=== PATIENT | male | born 1995 | race Hispanic/Latino ===

== ENCOUNTER 2018-02-11 16:55 | Emergency (ER) | payer OTHER, SELFPAY | END 2018-02-11 18:00 | disposition home or self-care (01) | LOC: ERS 16:55 | DX: K12.0 Recurrent oral aphthae (principal) | CPT/HCPCS: 99282 ==

== ENCOUNTER 2018-10-11 13:50 | Emergency (ER) | payer SELFPAY | END 2018-10-11 14:55 | disposition home or self-care (01) | LOC: ERS 13:50 | DX: J02.9 Acute pharyngitis, unspecified (principal); F17.210 Nicotine dependence, cigarettes, uncomplicated; M41.9 Scoliosis, unspecified | CPT/HCPCS: 99282 ==

== ENCOUNTER 2019-12-16 15:53 | Emergency (ER) | payer SELFPAY ==
--- NOTE | 2019-12-16 17:49 | ULT ---
EXAM: SCROTAL ULTRASOUND INCLUDING COLOR AND SPECTRAL DOPPLER IMAGING: History: Mass or lump felt by the patient in the inferior right testicle region. FINDINGS: Right testes measures 3.9 x 4.5 x 2.6 cm. Left testes measures 3.3 x 4.2 x 2.4 cm. There is some minimal enlargement in the region of the tail of the right epididymis where the patient is indicating pain with some increased blood flow in this region on color and spectral doppler imagi ng raising concern for some focal acute epididymitis. No evidence for intratesticular mass or testicu lar torsion. No significant hydrocele. IMPRESSION: 1. Minimal thickening with some increased blood flow in the tail of the right epididymis in the regio n of patient's painful palpable concern. Certainly this could represent some acute focal epididymitis . 2. No intratesticular mass or testicular torsion. No evidence of hydrocele. 3. This thickened area in the inferior tail of the right epididymis was not demonstrated on a prior study. POS: RRE
[2019-12-16 18:36] LABS: Bilirubin Negative (Negative); Blood, Urine Negative (Negative); Clarity Clear (Clear); Glucose, Urine (Dipstick) Normal (Negative); Leukocyte Negative Leu/uL (Negative); Nitrite Negative (Negative); Protein, Urine (Dipstick) Negative (Neg-Trace); Urobilinogen Normal mg/dL (Less than 2)
[2019-12-16] MEDS ORDERED: Lidocaine 1% PF 5 ML VIAL ONE (19:20)
[2019-12-16] MEDS ORDERED: cefTRIAXone\\ROCEPHIN 250 MG VIAL ONE (19:20)
[2019-12-17 20:43] LABS: Chlam.trachomatis by PCR,Urine Not Detected (NotDetected)
== END 2019-12-16 19:47 | disposition home or self-care (01) ==
LOC: ERS 15:53
DX: N45.1 Epididymitis (principal); F17.210 Nicotine dependence, cigarettes, uncomplicated; M41.9 Scoliosis, unspecified
CPT/HCPCS: 76870; 81003; 87086; 87491; 87591; 93976; 96372; J0696; J2001